=== PATIENT | female | born 1940 | race Caucasian/White ===

== ENCOUNTER → 2017-12-22 11:22 | Outpatient (CLI) | payer MEDICARE | END | disposition home or self-care (01) | LOC: D.RAD 11:22 | DX: R06.02 Shortness of breath (principal); R05 Cough ==

== ENCOUNTER 2018-03-12 14:04 | Inpatient (IN) | payer MEDICARE ==
[~2018-03-12] VITALS: Ht 162.6 cm; Wt 137.0 kg
[2018-03-12] VITALS (11 sets, daily range): BP systolic 87–202; BP diastolic 56–84; BMI 51.9
[2018-03-12] MEDS ORDERED: NOVOLIN 70/30 110 ML SC (14:33)
[2018-03-12] MEDS ORDERED: HUMALOG 30100 UNITS/ SC (14:34)
[2018-03-12] MEDS ORDERED: COZAAR100 MG PO (14:36)
[2018-03-12] MEDS ORDERED: LASIX40 MG PO (14:37)
[2018-03-12] MEDS ORDERED: OMEPRAZOLE20 M1 PO (14:37)
[2018-03-12] MEDS ORDERED: PACERONE200 MG PO (14:37)
[2018-03-12] MEDS ORDERED: ASPIRIN81 MG PO (14:38)
[2018-03-12] MEDS ORDERED: NEURONTIN 300300 MG PO (14:38)
[2018-03-12] MEDS ORDERED: LIPITOR20 MG PO (14:38)
[2018-03-12] MEDS ORDERED: VITAMIN B-121000 MCG PO (14:40)
[2018-03-12] MEDS ORDERED: FISH OIL 1,0001 CA1 PO (14:40)
[2018-03-12 15:04] LABS: BASOPHILS 0.3 % (0-2); EOSINOPHILS 2.1 % (0-7); HEMOGLOBIN 12.3 g/dL (12-16); IMMATURE GRANULOCYTES 0.7 % (0-5); LYMPHOCYTES 31.6 % (15-50); MCH 29.9 pg (26.0-34.0); MCHC 32.4 g/dL (31.0-37.0); MCV 92.2 fL (80.0-100.0); MEAN PLATELET VOLUME 9.8 fL (7.4-10.4); MONOCYTES 12.5 % (2-11); NEUTROPHILS 52.8 % (40-80); PLATELET COUNT 352 10x3/uL (130-400); RBC 4.12 10x6/uL (4.00-5.40); RDW 14.2 % (11.5-14.5); WBC 9.7 10x3/uL (4.8-10.8)
--- NOTE | 2018-03-12 15:22 | NUR ---
NASIR SCHAEFFER'D AFTER 100CC INFUSED PER DR. MCCLOUD. PATIENT REMAINS BRADYCARDIC, CRASHCART AT BEDSIDE, EXTERNAL PACER PADS IN PLACE.
[2018-03-12 15:24] LABS: ALBUMIN 2.7 g/dL (3.4-5.0); ALKALINE PHOSPHATASE 57 U/L (46-116); ALT (SGPT) 37 U/L (10-68); BILIRUBIN - TOTAL 0.46 mg/dL (0.2-1.3); CALC OSMOLALITY 274 mosm/kg (275-300); CALCIUM 8.5 mg/dL (8.5-10.1); CARBON DIOXIDE 26.8 mmol/L (21.0-32.0); CHLORIDE - SERUM 95 mmol/L (98-107); CREATININE - SERUM 2.3 mg/dL (0.6-1.3); GLUCOSE 187 mg/dL (74-106); POTASSIUM - SERUM 5.5 mmol/L (3.5-5.1); PROTEIN - SERUM 7.7 g/dL (6.4-8.2); SODIUM 131 mmol/L (136-145); UREA NITROGEN 33 mg/dL (7-18); eGFR NON AFRICAN AMERICAN 22 mL/min (90-120)
[2018-03-12 15:28] LABS: APTT 32.4 SECONDS (22.8-39.4); INR 1.21 (0.85-1.17); PROTIME 14.7 SECONDS (11.6-15.0)
[2018-03-12 15:33] LABS: CKMB 2.5 U/L (0.0-3.6); CREATINE KINASE 250 UL (21-215)
[2018-03-12 15:38] LABS: TROPONIN-I < 0.017 ng/mL (0.000-0.060)
--- NOTE | 2018-03-12 15:57 | NUR ---
PATIENT REMAINS A/O X 3, BP PER DOPPLER 114P.
--- NOTE | 2018-03-12 16:44 | NUR ---
GOODMAN CATH PLACED TO GRAVITY DRAIN BY CHARISMA MOBLEY RN.
--- NOTE | 2018-03-12 18:29 | NUR ---
1700 ARRIVED FROM ER VIASTRETCHER WITH O2 ON AT /NC DEMIES PAIN HR 22 - 28 ASYMPTOMATIC AT PRESENT FAMILY MEMBERS REMAIN AT BEDSIDE. INSTRUCTED PT NOT TO GET OUT OF BED VERBALIZED UNDERSTANDING
--- NOTE | 2018-03-12 18:31 | NUR ---
1800 ADMISSION ASSESSMENT COMPLETE WITH MED REC AND HOME PHARMACY
--- NOTE | 2018-03-12 18:38 | NUR ---
[address] WING OF HEART RATE AND BLOOD PRESSURE INSTUCTED BY DR WING TO KEEP IV FLUIDS HEART RATE WAS TYPICAL FOR THIS PATIENT NO OTHER NEW ORDERS NOTED
--- NOTE | 2018-03-12 19:23 | NUR ---
[address] WING OF DECREASING BP 59/53 52/45 INE ORDER NOTED DOBUTREX INFUSION AT 10MG/HOUR AND NS AT 100/HR
--- NOTE | 2018-03-12 22:00 | NUR ---
DOBUTAMINE DECREASED TO 5MCG/KG/MIN TO TO INCREASING BP. HR HAS INCREASED TO LOW 60'S. PT REPORTS FEELING MUCH BETTER.
[2018-03-12 22:32] LABS: CKMB 1.7 U/L (0.0-3.6); CREATINE KINASE 196 UL (21-215); TROPONIN-I 0.022 ng/mL (0.000-0.060)
[2018-03-13] VITALS (18 sets, daily range): BP systolic 109–179; BP diastolic 42–83; Ht 162.6 cm; Wt 137.0 kg
--- NOTE | 2018-03-13 00:15 | NUR ---
DOBUTAMINE TURNED OFF DUE TO HIGH BP. SINUS RYTHMN PER CM. PT DENIES NEEDS.
[2018-03-13 04:40] LABS: BASOPHILS 0.4 % (0-2); EOSINOPHILS 1.5 % (0-7); HEMATOCRIT 34.4 % (36.0-48.0); HEMOGLOBIN 11.4 g/dL (12-16); IMMATURE GRANULOCYTES 0.7 % (0-5); LYMPHOCYTES 32.6 % (15-50); MCHC 33.1 g/dL (31.0-37.0); MCV 90.5 fL (80.0-100.0); MEAN PLATELET VOLUME 9.6 fL (7.4-10.4); MONOCYTES 14.3 % (2-11); NEUTROPHILS 50.5 % (40-80); PLATELET COUNT 307 10x3/uL (130-400); RDW 14.1 % (11.5-14.5); WBC 7.5 10x3/uL (4.8-10.8)
--- NOTE | 2018-03-13 05:00 | NUR ---
PT STATES THAT SHE IS HYPOGLYCEMIC. SHE IS DIAPHORETIC AND PALE. RECENT GLUCOSE IS 77. SHE STATES ANYTIME SHE IS BELOW [address] GIVEN 1/2 AMP OF D-50 IV. AND PT IMMEDIATELY IMPROVES.
[2018-03-13 05:16] LABS: ALBUMIN 2.2 g/dL (3.4-5.0); ALKALINE PHOSPHATASE 51 U/L (46-116); BILIRUBIN - TOTAL 0.54 mg/dL (0.2-1.3); CALCIUM 8.2 mg/dL (8.5-10.1); CARBON DIOXIDE 27.7 mmol/L (21.0-32.0); CHLORIDE - SERUM 100 mmol/L (98-107); CKMB 0.9 U/L (0.0-3.6); CREATINE KINASE 158 UL (21-215); PROTEIN - SERUM 6.8 g/dL (6.4-8.2); SODIUM 137 mmol/L (136-145); TROPONIN-I 0.028 ng/mL (0.000-0.060); UREA NITROGEN 31 mg/dL (7-18); eGFR NON AFRICAN AMERICAN 26 mL/min (90-120)
[2018-03-13 05:17] LABS: ALT (SGPT) 390 U/L (10-68); CALC OSMOLALITY 279 mosm/kg (275-300); GLUCOSE 77 mg/dL (74-106)
[2018-03-13 09:54] LABS: CKMB 1.3 U/L (0.0-3.6); CREATINE KINASE 148 UL (21-215); TROPONIN-I 0.024 ng/mL (0.000-0.060)
--- NOTE | 2018-03-13 11:11 | NUR ---
0800 AM ASSESMENT IS COMPLETE SEE FLOW SHEET FOR FINDINGS.. PT IS AWAKE AND ALERT.. HR IS 47 DOBUTREX HANGING BUT NOT INFUSING PER REPORT TO HOLD RECIEVED FROM HOST AND HOSTESS NURSE.. NS INFUSING AT 100CC/HR INTO PIV ON THE LEFT FOEREARM.. PT IS ASYMPTOMATIC WITH HR.. SEE SKIN ASSESMENT RE LOWER EXTREMITIES.. WILL CONTACT WOUND CARE TO ASSES.. PT IS WITHOUT C/O AT THIS TIME.. 0900 DR WING CALLED UNIT AND UPDATE GIVEN NO NEW ORDERS AT THIS TIME.. DOBUTREX REMAINS OFF. 0915 FAMILY IN TO SEE PT AND UPDATE GIVEN.. FAMILY REMAINS AT THDE BEDSIDE..
--- NOTE | 2018-03-13 13:29 | HP ---
PATIENT: HEMA BARKER MEDICAL RECORD: [id number] ACCOUNT: [id number] LOCATION:[facility] D.2309 : 42 ADMISSION DATE: 03/12/18 PCP: EKTA DIOR MD HISTORY AND PHYSICAL EXAMINATION DIAGNOSES: 1. Bradycardia. 2. Sick sinus syndrome. 3. Paroxysmal atrial fibrillation. 4. Coronary artery disease. 5. Hypertension. 6. Hyperlipidemia. 7. Insulin-dependent diabetes. HISTORY OF PRESENT ILLNESS: Mrs. Barker presents with 2 weeks of overall fatigue, shortness of breath, no real chest pain, found to be extremely bradycardic in the 20s. Her systolic blood pressure is 90-100 with this. She is mentating well. She has a junctional bradycardia in the 20s with this. There are no acute ST-T abnormalities. Her creatinine is 2.3. Troponin is normal. PHYSICAL EXAMINATION: GENERAL APPEARANCE: Well-nourished, well-developed, appears stated age. Level of distress, comfortable. PSYCHIATRIC: Mental status, alert, normal affect. Orientation, oriented to time, place and person. EYES: Lids and conjunctiva, noninjected. No discharge, no pallor. ENT: Lips, teeth, gums, normal dentition. Oropharynx, no cyanosis, no pallor. NECK: Carotid arteries, bilateral normal upstroke, no bruits, no thrills. JUGULAR VEINS: No jugular venous pressure or distention. CERVICAL LYMPH NODES: Nontender, nonenlarged. THYROID: Not enlarged. Nontender. No nodules. LUNGS: Respiratory effort, unlabored. CHEST: Normal curvature. No thoracic deformity. No chest wall tenderness. Percussion, resonant. Auscultation, clear. No wheezes, no rales, no rhonchi. CARDIOVASCULAR: Precordial exam, nondisplaced. No heaves or pericardial thrills. Rate and rhythm, regular. Heart sounds, normal S1, normal S2. No S3, no gallop, no rub. Systolic murmur, not heard. Diastolic murmur, not heard. EXTREMITIES: No cyanosis, no edema. Peripheral pulses, full and equal in all extremities, except as noted. No bruits appreciated. ABDOMEN: Soft, nondistended. Normal aorta. No bruit. Nontender. No masses. Liver, nontender, no hepatomegaly. Spleen, nontender, no splenomegaly. MUSCULOSKELETAL: No joint tenderness. No joint swelling. No erythema. NEUROLOGICAL: Normal gait, normal strength, normal tone. SKIN: Warm and dry. OVERALL IMPRESSION: Severe bradycardia, most likely the renal insufficiency came first, the bradycardia then came second. At this time, we will start IV fluids as well as Lasix and very well may need a permanent pacemaker. I do not think an emergent temporary pacemaker is necessary at this time as her heart rate remains in the 20s and she is mentating just fine and maintains systolic blood pressure greater than 90. TRANSINT:[id number] Voice Confirmation ID: [id number] DOCUMENT ID: [id number] HISTORY AND PHYSICAL [id number] HEMA BARKER, RIDGE HIDALGO at 1329 CC: [id number] DICTATION DATE: 03/12/18 1621 STAFFING ASSOCIATE: 03/12/18 1638 ADM IN [facility] [address] [place] [address]
--- NOTE | 2018-03-13 14:51 | NUR ---
1000 PT IS COUGHING PRODUCTIVELY.. DAUGHTER REMAINS AT BEDSIDE.. DOBUTREX REMAINS OFF PER DR WING ICE CHIPS GIVEN.. 1020 HR 58 BP 141/58 1100 FAMILY GONE FROM BEDSIDE.. 1200 DR WING IN UNIT UPDATE GIVEN AND VERBAL ORDER FOR TRANSFER TO PCU RECIEVED.. OK FOR DIET..WOUND CARE CONSULTED 1315 DIET SERVED AND PT IS FEEDING SELF WITHOUT C/O HR 60 VSS 1430 DAUGHTERS ARE AT THE BEDSIDE UPDATE IS GIVEN QUESTIONS RE MEDS RECIEVED FROM DAUGHTERS.. WILL SPEAK WITH WHEN HE MAKES ROUNDS,,
--- NOTE | 2018-03-13 15:11 | MORECARE ---
CASE MANAGEMENT DISCHARGE SUMMARY PATIENT: HEMA BARKER UNIT: [id number] ADM DATE: 03/12/18 AGE: 78 : 41 SEX: F ROOM/BED: D.2309 AUTHOR: ERIKA ALCOCER PHYSICIAN: REFERRING PHYSICIAN: RIDGE WING MD DATE OF SERVICE: 03/13/18 Discharge Plan Patient Name: [facility]EMA [facility]ARKER [facility] [facility] 1940 Planned Disposition: Home Health Service Anticipated Discharge Date: Discharge Date: Expected LOS: Initial Reviewer: [email or web address] Initial Review Date: 03/13/2018 Generated: 03/13/18 4:11 pm Patient Name: HEMA BARKER Page [phone] at 1511 All edits/amendments must be made on the electronic document DICTATION DATE: 03/13/18 151 FURNITURE REPAIR TECHNICIAN: ROSA 03/13/18 1511 RPT#: [id number] DC DATE: STATUS: ADM IN [facility] [address] [place] [address] END OF REPORT
--- NOTE | 2018-03-13 15:20 | MORECARE ---
CASE MANAGEMENT DISCHARGE SUMMARY PATIENT: HEMA BARKER UNIT: [id number] ADM DATE: 03/12/18 AGE: 78 : 41 SEX: F ROOM/BED: D.2309 AUTHOR: ERIKA ALCOCER PHYSICIAN: REFERRING PHYSICIAN: RIDGE WING MD DATE OF SERVICE: 03/13/18 Discharge Plan Patient Name: HEMA BARKER [facility] [facility] 1940 Planned Disposition: Home Health Service Anticipated Discharge Date: Discharge Date: Expected LOS: Initial Reviewer: [email or web address] Initial Review Date: 03/13/2018 Generated: 03/13/18 4:20 pm DCPIA - Discharge Planning Initial Assessment Updated by [email or web address]: Carmina Mcmahon on 03/13/18 3:14 pm * Is the patient Alert and Oriented? Yes * How many steps to enter\exit or inside your home? * PCP EKTA DIOR MD - [facility] * Pharmacy [facility] * Preadmission Environment Home with Family * ADLs Independent * Equipment Elevated Toliet Seat * Other Equipment WALKER, W/C, CANE, SHOWER GRAB BARS * List name and contact numbers for known caregivers / representatives who currently or will assist patient after discharge: NADIA ONEILL - DAUGHTER- [phone] * Verbal permission to speak to the caregivers and representatives has been obtained from the patient. Yes * Community resources currently utilized Home Health * Please name any agencies selected above. [facility] - PATIENT ALSO BEING SEEN AT [facility] * Additional services required to return to the preadmission environment? No * Can the patient safely return to the preadmission environment? Yes * Has this patient been hospitalized within the prior 30 days at any hospital? No Last DP export: 03/13/18 2:11 p Patient Name: HEMA BARKER Page [phone] at 1520 All edits/amendments must be made on the electronic document DICTATION DATE: 03/13/181518 ARMATURE WINDER HELPER REPAIR: ROSA 03/13/18 1519 RPT#: [id number] DC DATE: STATUS: ADM IN [facility] [address] [place] [address] END OF REPORT
--- NOTE | 2018-03-13 15:29 | MORECARE ---
CASE MANAGEMENT DISCHARGE SUMMARY PATIENT: HEMA BARKER UNIT: [id number] ADM DATE: 03/12/18 AGE: 78 : 41 SEX: F ROOM/BED: D.2309 AUTHOR: CARLYN,DOC PHYSICIAN: REFERRING PHYSICIAN: RIDGE WING MD DATE OF SERVICE: 03/13/18 Discharge Plan Patient Name: HEMA BARKER Facility: [facility]:[place] : 1940 Planned Disposition: Home Health Service Anticipated Discharge Date: Discharge Date: Expected LOS: Initial Reviewer: [email or web address] Initial Review Date: 03/13/2018 Generated: 03/13/18 4:29 pm Comments DCP- Discharge Planning Updated by [email or web address]: Carmina Mcmahon on 03/13/18 2:[address] Patient Name: HEMA BAREKR Admission Status: ER Accout number: [id number] Admission Date: 03-12-2018 : 1940 Admission Diagnosis: Attending: MIGUEL WING Current LOS: 1 Anticipated DC Date: Planned Disposition: Home Health Service Primary Insurance: [facility] MEDICARE SOLUTIONS Discharge Planning Comments: CM met with patient and family at bedside after obtaining verbal consent. Patient states that she lives with family and plans to return to her home upon discharge. Patient states that she was being seen by [facility] and plans to resume care with them upon discharge. Patient also states she is being seen at wound center for a wound on her leg. Patient requested for wound care to see her. Patient states her dressing is due to be changed today. CM notified iMmi with wound care. Patient denies any discharge needs at this time. CM will continue to follow and assist as needed with discharge planning / needs. Bridge Maintenance Worker: Carmina Mcmahon DCPIA - Discharge Planning Initial Assessment Updated by [email or web address]: Carmina Mcmahon on 03/13/18 3:14 pm * Is the patient Alert and Oriented? Yes * How many steps to enter\exit or inside your home? * PCP EKTA DIOR MD - [facility] * Pharmacy [facility] * Preadmission Environment Home with Family * ADLs Independent * Equipment Elevated Toliet Seat * Other Equipment WALKER, W/C, CANE, SHOWER GRAB BARS * List name and contact numbers for known caregivers / representatives who currently or will assist patient after discharge: NADIA ONEILL - DAUGHTER- [phone] * Verbal permission to speak to the caregivers and representatives has been obtained from the patient. Yes * Community resources currently utilized Home Health * Please name any agencies selected above. [facility] - PATIENT ALSO BEING SEEN AT [facility] * Additional services required to return to the preadmission environment? No * Can the patient safely return to the preadmission environment? Yes * Has this patient been hospitalized within the prior 30 days at any hospital? No Last DP export: 03/13/18 2:20 p Patient Name: HEMA BARKER Page [phone] at 1529 All edits/amendments must be made on the electronic document DICTATION DATE: 03/13/181527 PIANO BENCH ASSEMBLER: ROSA 03/13/181527 RPT#: [id number] DC DATE: STATUS: ADM IN [facility] [address] [place] [address] END OF REPORT
--- NOTE | 2018-03-13 16:45 | NUR ---
1630 DAUGHTERS AT BEDSIDE.. DR WING IN TO SEE PT .. UPDATE GIVEN AND SPOKE WITH PT AND FAMILY IV FLUID DCd FSBS DONE WITHOUT INSULIN COVER.. PT REQUEST THAT [facility] CATH BE LEFT IN UNTIL PT IS STONGER AND CAN AMBULATE TO A BATHROOM.. WOUND CARE CALLED AND REMINDED TO SEE PT FAMILY CONCERNED WITH LEG CONDITION
--- NOTE | 2018-03-13 17:12 | NUR ---
TRANSFER FROM ICU BY BED. OREINTED TO ROOM. CALL LIGHT IN REACH. WILL CONT. PLAN OF CARE.
--- NOTE | 2018-03-13 17:22 | NUR ---
COMPRESSION STOCKING REMOVED FROM LEFT LEG. JAMAL COOK. WOUND CARE NURSE WILL SEE IN AM.
--- NOTE | 2018-03-13 19:41 | NUR ---
RECIEVED UP IN BED WITH EYES OPEN. ALERT AND ORIENTED X4. O2@ 2 LITERS PER N/C. F/C INTACT WITH CLEAR YELLOW URINE DRAINING TO BEDSIDE DRAINAGE BAG. REFUSES TO ALLOW F/C TO BE D/C'S AT THIS TIME. LEFT LOWER LEG DSG INTACT. DENIES ANY NEEDS.
[2018-03-14] VITALS: BP 133/47
[2018-03-14 04:00] VITALS: BP 152/46
[2018-03-14 07:55] VITALS: BP 127/53
[2018-03-14] MEDS ORDERED: AMIODARONE HCL200 MG PO ×2 (09:06→11:26)
--- NOTE | 2018-03-14 09:46 | NUR ---
GOODMAN CATH DCD WITH 400CC URINE AND 10CC BULB. DRSG REMOVED TO LEFT LEG. REGULATORY AFFAIRS ASSISTANT ASSISTED UP TO SHOWER. WILL CONT. PLAN OF CARE.
[2018-03-14 11:14] VITALS: BP 166/57
[2018-03-14 11:17] LABS: ANION GAP 12.5 mmol/L (8-16); CALCIUM 8.8 mg/dL (8.5-10.1); CARBON DIOXIDE 27.1 mmol/L (21.0-32.0); POTASSIUM - SERUM 4.6 mmol/L (3.5-5.1)
--- NOTE | 2018-03-14 11:55 | NUR ---
RED PEELING SKIN NOTED ON LEFT LOWER EXTREMITY. PT HAS BEEN GOING TO [facility] FOR TREATMENT WHICH INCLUDED MIPIROCEN OINTMENT 2%. OINTMENT WAS APPLIED TO LEFT LEG, THEN ADAPTIC OVER OPEN AREAS, 4X4S AND WRAPPED WITH KERLIX. ON RIGHT LE THERE IS A HEALING AREA THAT WAS RELATED TO A FALL AT HOME. WOUND IS CLEAN AND DRY. APPLIED OINTMENT TO IT AND LEFT OPEN TO AIR. WOUND CARE WILL CONTINUE MONITORING.
--- NOTE | 2018-03-14 12:13 | NUR ---
IV AND TELEMETRY DCD. DC PLANS GIVEN. UNDERSTANDING VOICED. ESCORTED TO CAR BY W/C.
--- NOTE | 2018-03-14 17:13 | MORECARE ---
CASE MANAGEMENT DISCHARGE SUMMARY PATIENT: HEMA BARKER UNIT: [id number] ADM DATE: 03/12/18 AGE: 78 : 41 SEX: F ROOM/BED: D.9601 AUTHOR: CARLYN,DOC PHYSICIAN: REFERRING PHYSICIAN: RIDGE WING MD DATE OF SERVICE: 03/14/18 Discharge Plan Patient Name: HEMA BARKER Facility: [facility]:[place] : 1940 Planned Disposition: Home with Home Health Anticipated Discharge Date: 03/13/18 Discharge Date: 03/14/2018 Expected LOS: 1 Initial Reviewer: [email or web address] Initial Review Date: 03/13/2018 Generated: 03/14/18 6:13 pm Comments DCP- Discharge Planning Updated by [email or web address]: Adama Rincon on 03/14/18 4:[address] Patient Name: HEMA BARKER Encounter No: [id number] : 1940 Primary Insurance: [facility] MEDICARE SOLUTIONS Anticipated DC Date: 03-13-2018 Planned Disposition: Home with Home Health External Planned Provider: [facility] DCP follow-up note: CM REVIEWED CHART, PT DISCHARGED HOME YESTERDAY AND HAD INDICATED SHE HAD ACTIVE HOME HEALTH WITH [facility] THAT PT WANTED RESUMED AT DISCHARGE. CM FAXED DISCHARGE AND HOSPITAL STAY INFORMATION TO [facility] AT [phone] TO RESUME PT'S HOME HEALTH SERVICES. TRICIA Perdue DCP- Discharge Planning Updated by [email or web address]: Carmina Mcmahon on 03/13/18 2:[address] Patient Name: HEMA BARKER Admission Status: ER Accout number: [id number] Admission Date: 03-12-2018 : 1940 Admission Diagnosis: Attending: MIGUEL WING Current LOS: 1 Anticipated DC Date: Planned Disposition: Home Health Service Primary Insurance: [facility] MEDICARE SOLUTIONS Discharge Planning Comments: CM met with patient and family at bedside after obtaining verbal consent. Patient states that she lives with family and plans to return to her home upon discharge. Patient states that she was being seen by [facility] and plans to resume care with them upon discharge. Patient also states she is being seen at wound center for a wound on her leg. Patient requested for wound care to see her. Patient states her dressing is due to be changed today. CM notified Mimi with wound care. Patient denies any discharge needs at this time. CM will continue to follow and assist as needed with discharge planning / needs. Physical Therapy Assistant Instructor: Carmina Lisandro DCPIA - Discharge Planning Initial Assessment Updated by [email or web address]: Carmina Mcmahon on 03/13/18 3:14 pm * Is the patient Alert and Oriented? Yes * How many steps to enter\exit or inside your home? * PCP EKTA DIOR MD - [place] * [facility] * Preadmission Environment Home with Family * ADLs Independent * Equipment Elevated Toliet Seat * Other Equipment WALKER, W/C, CANE, SHOWER GRAB BARS * List name and contact numbers for known caregivers / representatives who currently or will assist patient after discharge: NADIA ONEILL - DAUGHTER- [phone] * Verbal permission to speak to the caregivers and representatives has been obtained from the patient. Yes * Community resources currently utilized Home Health * Please name any agencies selected above. [facility] - PATIENT ALSO BEING SEEN AT WOUND CENTER * Additional services required to return to the preadmission environment? No * Can the patient safely return to the preadmission environment? Yes * Has this patient been hospitalized within the prior 30 days at any hospital? No External Providers External Provider: [facility] Next Contact Date: 03/13/2018 Service Request Date: Service Type: Resolution: Reviewer: Comments: Last DP export: 03/13/18 2:29 p Patient Name: HEMA BARKER Page [phone] at 1713 All edits/amendments must be made on the electronic document DICTATION DATE: 03/14/181712 METAL CASKET ASSEMBLER: ROSA 03/14/181712 RPT#: [id number] NM DATE:03/14/18 STATUS: DIS IN [facility] [address] [place] [address] END OF REPORT
--- NOTE | 2018-03-20 10:22 | DS ---
PATIENT:HEMA BARKER :[birth year] MEDICAL RECORD: [id number] DISCHARGE SUMMARY ADMISSION DATE: 03/12/18 DISCHARGE DATE: 03/14/18 DISCHARGE DIAGNOSES: 1. Sick sinus syndrome. 2. Paroxysmal atrial fibrillation. 3. Bradycardia. 4. Hypertension. 5. Hyperlipidemia. 6. Coronary artery disease. HOSPITAL COURSE: Mrs. Barker presents with severe bradycardia with heart rates in the 20s and it was found out during this admission. She was on sotalol and amiodarone. She was initially changed from sotalol to amiodarone due to atrial fibrillation and this caused a severe bradycardia. She as well had renal insufficiency. She was hydrated. She may regain sinus rhythm, had not had any further atrial fibrillation, was discharged home with only amiodarone 200 mg a day. No sotalol and no metoprolol. She will follow up with [facility] in 2 weeks. TRANSINT:[id number] Voice Confirmation ID: [id number] DOCUMENT ID: [id number] RIDGE WING MD at 1022 CC: [id number] DICTATION DATE: 03/14/18 1025 CASHIER ASSISTANT: 03/15/18 0729 DIS IN 03/14/18 [place] [address]
== END 2018-03-14 12:23 | disposition home health service (06) | DRG 310 ==
LOC: D.ER 14:04 → D.ICU 15:24 → D.M2 03-13 17:08
PROVIDERS: Family Medicine; ADMIT Internal Medicine Interventional Cardiology
DX: I49.5 Sick sinus syndrome (principal); I48.0 Paroxysmal atrial fibrillation; I10 Essential (primary) hypertension; I25.10 Atherosclerotic heart disease of native coronary artery without angina pectoris; E78.5 Hyperlipidemia, unspecified; N28.9 Disorder of kidney and ureter, unspecified; E11.9 Type 2 diabetes mellitus without complications; Z79.4 Long term (current) use of insulin

== ENCOUNTER → 2018-03-27 16:47 | Outpatient (CLI) | payer MEDICARE ==
[2018-03-13 09:53] VITALS: BMI 51.8
[~2018-03-27 16:47] MED LIST: AMIODARONE HCL200 MG PO; ASPIRIN81 MG PO; COZAAR100 MG PO; FISH OIL 1,0001 CA1 PO; HUMALOG 30100 UNITS/ SC; LASIX40 MG PO; LIPITOR20 MG PO; NEURONTIN 300300 MG PO; NOVOLIN 70/30 110 ML SC; OMEPRAZOLE20 M1 PO; PACERONE200 MG PO; VITAMIN B-121000 MCG PO
[2018-03-27 18:50] LABS: CALC OSMOLALITY 277 mosm/kg (275-300); CALCIUM 8.8 mg/dL (8.5-10.1); CARBON DIOXIDE 23.9 mmol/L (21.0-32.0); CHLORIDE - SERUM 101 mmol/L (98-107); CREATININE - SERUM 0.7 mg/dL (0.6-1.3); POTASSIUM - SERUM 4.4 mmol/L (3.5-5.1); SODIUM 137 mmol/L (136-145); UREA NITROGEN 12 mg/dL (7-18); eGFR NON AFRICAN AMERICAN 86 mL/min (90-120)
[2018-03-27 18:51] LABS: GLUCOSE 167 mg/dL (74-106)
== END | disposition home or self-care (01) ==
LOC: D.LABREF 16:47
PROVIDERS: Nurse Practitioner
DX: I10 Essential (primary) hypertension (principal)